=== PATIENT | female | born 1990 | race Caucasian/White ===

== ENCOUNTER 2017-09-05 08:00 | Inpatient (IN) ==
[2017-09-05] MEDS ORDERED: RINGER'S SOLUTION,LACTATED 1,000 ML IV PRN (08:51)
[2017-09-05] MEDS ORDERED: RINGER'S SOLUTION,LACTATED 1,000 ML IV ONE ×2 (08:55→09:10)
[2017-09-05] MEDS ORDERED: ceFAZolin SODIUM/DEXTROSE,ISO 2 GM/50 ML BAG IV ONE (09:15)
[2017-09-05] MEDS ORDERED: OXYTOCIN 20 UNITS in RINGER'S SOLUTION,LACTATED 1,000 ML IV ONE (09:15)
[2017-09-05] MEDS ORDERED: SIMETHICONE 80 MG TAB.CHEW PO PRN (10:22)
[2017-09-05] MEDS ORDERED: oxyCODONE HCL/ACETAMINOPHEN 1 TAB TABLET PO PRN (10:22)
[2017-09-05] MEDS ORDERED: SENNOSIDES 8.6 MG TABLET PO PRN (10:22)
[2017-09-05] MEDS ORDERED: ONDANSETRON HCL/PF 2 MG/ML VIAL IV PRN (10:22)
[2017-09-05] MEDS ORDERED: BISACODYL 10 MG SUPP.RECT RC PRN (10:22)
--- NOTE | 2017-09-05 10:29 | OR ---
Operative Report - Dictated Report Narrative: Indication: 27-year-old 2 para 1 at 37 weeks with prior section being followed for borderline antepartum testing presents today with a biophysical profile of 4 out of 10 (2 for LLOYD, 2 for reactive NST). status: Urgent Pre Operative Diagnosis: 37 week intrauterine , Prior section , Nonreassuring antepartum testing Post Operative Diagnosis: Same. Procedure: Repeat low transverse section. Abdominal scar revision - 16cm Surgeon: Aristeo Gold DO Adult Crossing Guard: OR Staff Anesthesia: Spinal, TAP block Estimated Blood Loss: 200 mL Urine Output: 400 mL clear urine Fluids Replacement: 1700 mL Drains: Randle to gravity Surgical Complications: None Specimens: Placenta pathology Findings: Male in cephalic presentation born at 0926 on 09/05/2018 with Apgars 8 and 9, weighing 3443 g. Normal uterus, tubes, ovaries. Cord avulsed from placenta with manual traction after delivery of . Technique: The patient was taken to the operating room and placed in dorsal supine position with a left lateral tilt. After adequate spinal anesthesia, randle catheter inserted, SCDs placed, and 2 g of Ancef given preoperatively, the previous scar was excised in an elliptical fashion and the abdominal cavity was entered using sharp and blunt dissection. Two rolled laps were placed in the pericolic gutters on either side of the uterus. A transverse incision was made in the lower uterine segment and extended laterally and upwardly with digital traction. Clear fluid was noted upon amniotomy. The infant was delivered easily. The cord was clamped and cut and infant was handed off to awaiting bezel cutter. The placenta was allowed to deliver spontaneously. The uterus was cleared of clot and debris. Uterine incision was closed with 0 Vicryl using a running stitch. A second imbricating layer was placed. Excellent hemostasis was noted. The rolled laps were removed from the abdominal cavitiy. The peritoneum was closed with a running 3-0 Monocryl. The same suture was used to approximate the rectus and pyramidalis muscles. The fascia was closed with a running 0 Vicryl. The subcutaneous layer was closed with a running 3-0 Monocryl. The same suture was used to approximate the subdermal layer. The skin was closed with a running 4-0 Monocryl and Dermabond. Sponge, lap, needle, and instrument count were correct x 2. Disposition: To post anesthesia care unit in good condition History for MU Definition: * The number of deliveries resulting in a live the patient experienced prior to current hospitalization * The previous delivery of live twins or any live multiple gestation is considered one live event. *If primagravida or nulliparous is documented select zero for the number of previous live births. Live Events: 1
[2017-09-05] MEDS: oxyCODONE HCL/ACETAMINOPHEN 1 TAB TABLET PO PRN ×3 (10:57→21:51)
--- NOTE | 2017-09-05 12:51 | OR ---
Anesthesia Procedure Note - Anesthesia Procedure Note Date of Service: 09/05/17 Narrative: Vital Signs - Last Taken Temp 36.1 C L 09/05/17 12:47 Pulse 82 09/05/17 12:47 Resp 18 09/05/17 12:47 BP 135/73 09/05/17 12:47 Pulse Ox 96 09/05/17 12:47 O2 Oxygen Delivery Method Room Air 09/05/17 12:50 ANESTHESIA PROCEDURE NOTE Date of Procedure: 09/05/2017. Time of procedure: 1020. Performed by: Oswaldo Gonzalez CRNA Electrocardiographic Technician: None. Preprocedure diagnosis: Repeat . Post procedure diagnosis: Same. Procedure: Bilateral ultrasound-guided transversus abdominis plane block for postop analgesia. Indications: The patient is a 27 -year-old female post section. Findings: See below. Details of the procedure: ChloraPrep was used on the patient's abdomen and the procedure was performed under sterile technique. The right abdominal fascial layer between the internal oblique muscle and the transversus abdominis muscles was identified under ultrasound guidance. A 21-gauge 4 inch block needle was inserted under ultrasound guidance to the target fascial plane. 15 mL's of 0.5 % bupivacaine plus epinephrine 1:200,000 was injected after negative aspiration for blood. The needle was removed intact and the procedure was then repeated at the left side. No complications were noted. The images were retained in the hospital medical database . EBL: Minimal. Fluids: N/A. Specimen: N/A. Post procedure condition: The patient tolerated the procedure well. No complications were noted. Thank you for this consultation. Oswaldo Gonzalez CRNA
[2017-09-05] MEDS: ENOXAPARIN SODIUM 40 MG/0.4 ML SYRG SC SCH (17:45)
[2017-09-05] MEDS: IBUPROFEN 800 MG TABLET PO PRN (18:38)
[2017-09-05] MEDS: DOCUSATE SODIUM 100 MG CAPSULE PO SCH (21:51)
[2017-09-06] MEDS: IBUPROFEN 800 MG TABLET PO PRN ×4 (00:53→20:52)
[2017-09-06] MEDS: oxyCODONE HCL/ACETAMINOPHEN 1 TAB TABLET PO PRN ×6 (00:53→20:52)
--- NOTE | 2017-09-06 08:37 | PN ---
Subjective - Date and Time Seen Date: 09/06/17 Time: 08:37 Objective - Vitals Vitals: Last Vital Signs Temp 36.7 C 09/06/17 01:35 Pulse 86 09/06/17 01:35 Resp 18 09/06/17 01:35 BP 140/87 09/06/17 01:35 Pulse Ox 96 09/06/17 01:35 Patient denies complaints. Tolerating regular diet. Ambulating without difficulty. Pain well controlled. Lochia wnl. Abdomen - soft, appropriately tender Incision - clean, dry, intact Uterus - firm, at umbilicus -1 No calf tenderness Impression: Post op day #1 s/p repeat section. Abdominal scar revision Plan: Continue routine post-operative/ care Cauti Physician Documentation - Urinary Catheter Management Urethral ([place]) Date of Insertion: 09/05/17 Time of Insertion: 09:00 Date of Removal: 09/05/17 Time of Removal: 21:45
[2017-09-06] MEDS: LEVOTHYROXINE SODIUM 25 MCG TABLET PO SCH (09:39)
[2017-09-06] MEDS: DOCUSATE SODIUM 100 MG CAPSULE PO SCH ×2 (09:39→20:52)
[2017-09-06] MEDS: ENOXAPARIN SODIUM 40 MG/0.4 ML SYRG SC SCH (17:43)
[2017-09-07] MEDS: oxyCODONE HCL/ACETAMINOPHEN 1 TAB TABLET PO PRN ×2 (03:21→08:17)
[2017-09-07] MEDS: IBUPROFEN 800 MG TABLET PO PRN ×3 (03:21→17:08)
[2017-09-07] MEDS: DOCUSATE SODIUM 100 MG CAPSULE PO SCH ×2 (08:17→21:27)
[2017-09-07] MEDS: LEVOTHYROXINE SODIUM 25 MCG TABLET PO SCH (08:17)
--- NOTE | 2017-09-07 10:32 | PN ---
Subjective - Date and Time Seen Date: 09/07/17 Time: 10:31 Objective - Vitals Vitals: Last Vital Signs Temp 36.4 C L 09/07/17 09:11 Pulse 98 09/07/17 09:11 Resp 18 09/07/17 09:11 BP 131/87 09/07/17 09:11 Pulse Ox 98 09/07/17 09:11 Patient denies complaints. Ambulating well. Tolerating regular diet. Pain well controlled. Lochia wnl. Abdomen - soft, appropriately tender Incision - clean, dry, intact Uterus - firm, at umbilicus -2 No calf tenderness Impression: Post op day #2 s/p repeat section. Hypothyroidism- stable. Anxiety-stable Plan: Continue routine post-operative/ care Cauti Physician Documentation - Urinary Catheter Management Urethral ([place]) Date of Insertion: 09/05/17 Time of Insertion: 09:00 Date of Removal: 09/05/17 Time of Removal: 21:45
[2017-09-07] MEDS: ENOXAPARIN SODIUM 40 MG/0.4 ML SYRG SC SCH (17:09)
[2017-09-08 08:03] VITALS: BP 131/97
[2017-09-08] MEDS: oxyCODONE HCL/ACETAMINOPHEN 1 TAB TABLET PO PRN (08:28)
[2017-09-08] MEDS: LEVOTHYROXINE SODIUM 25 MCG TABLET PO SCH (08:28)
[2017-09-08] MEDS: IBUPROFEN 800 MG TABLET PO PRN (08:28)
--- NOTE | 2017-09-08 09:15 | PN ---
Subjective - Date and Time Seen Date: 09/08/17 Time: 09:06 Objective - Vitals Vitals: Last Vital Signs Temp 36.8 C 09/08/17 07:56 Pulse 90 09/08/17 07:56 Resp 18 09/08/17 07:56 BP 131/97 09/08/17 07:56 Pulse Ox 98 09/08/17 07:56 Patient denies complaints. Pain well controlled. Lochia wnl. Abdomen - soft, appropriately tender Incision -clean, dry, intact uterus - firm , at umbilicus -3 No calf tenderness Impression: Post op day 3 s/p repeat section, hypothyroidism-stable. Anxiety disorder-stable. Plan: Routine discharge instructions Cauti Physician Documentation - Urinary Catheter Management Urethral ([place]) Date of Insertion: 09/05/17 Time of Insertion: 09:00 Date of Removal: 09/05/17 Time of Removal: 21:45
== END 2017-09-08 11:00 | disposition home or self-care (01) | DRG 766 ==
LOC: OB 08:00 → MS 20:59
PROVIDERS: ADMIT Obstetrics & Gynecology; ATTEND Obstetrics & Gynecology
DX: O99.284 Endocrine, nutritional and metabolic diseases complicating childbirth; O76 Abnormality in fetal heart rate and rhythm complicating labor and delivery; E03.9 Hypothyroidism, unspecified; O34.211 Maternal care for low transverse scar from previous cesarean delivery; Z37.0 Single live birth; Z88.0 Allergy status to penicillin; Z3A.37 37 weeks gestation of pregnancy
CPT/HCPCS: 59025; 88307